=== PATIENT | male | born 1955 | race Asian ===

== ENCOUNTER 2019-01-20 08:15 | Emergency (ER) | payer OTHER, MEDICAID ==
[~2019-01-20] VITALS: Ht 157.5 cm; Wt 45.4 kg
[2019-01-20 08:15] VITALS: BP 179/82
--- NOTE | 2019-01-20 08:15 | NUR ---
PT BIBA TO BED 10.
[2019-01-20] MEDS ORDERED: LORazepam 2 MG/ML VIAL ONE (08:19)
[2019-01-20] MEDS ORDERED: LORazepam 2 MG/ML VIAL IVP ONE (08:20)
[2019-01-20] MEDS ORDERED: PROPOFOL 1000 MG/100 ML PREMIX 100 ML IV ONE ×2 (08:20)
[2019-01-20] MEDS ORDERED: NACL 0.9% 1,000 ML IV ONE (08:20)
--- NOTE | 2019-01-20 08:30 | NUR ---
63 YEAR OLD MALE PATIENT BIBA S/P UNWITNESSED FALL. PATIENT WAS ON TRANSCUTANEOUS PACING TO 60BPM, COOL SKIN, PALE, TIGHT, NONDIAPHORETIC. GCS 8/15 (2,4,2), PATIENT RESPONDS TO PAIN. APHASIC AT THIS TIME. ABRASION TO LEFT SHOULDER CHEST AREA. RESPIRATORY RATE OF 18, NC 2L/MIN O2 SATURATION 100%, BREATHING UNLABORED, NORMAL CHEST RISE/FALL, CLEAR TO AUSCULTATION BILATERALLY. BED IN LOWEST POSITION, SIDE RAILS UPX2 FOR PATIENT SAFETY. DOCTOR LUIS AT BEDSIDE.
[2019-01-20] MEDS ORDERED: NA P133E RC (08:32)
[2019-01-20] MEDS ORDERED: ESCI10TA PO (08:32)
[2019-01-20] MEDS ORDERED: CRAN450C PO (08:32)
[2019-01-20] MEDS ORDERED: MAGN400S60 PO (08:32)
[2019-01-20] MEDS ORDERED: DOCU-299 PO (08:32)
[2019-01-20] MEDS ORDERED: BISA-213 RC (08:32)
[2019-01-20] MEDS ORDERED: BUPR-160 PO (08:32)
[2019-01-20] MEDS ORDERED: ACET-2619 PO (08:32)
--- NOTE | 2019-01-20 09:00 | NUR ---
# 14 FR Jiménez catheter with 10 ml utilizing sterile technique. Immediate return of 5 ml YELLOW urine noted. Bedside drainage bag placed below level of bladder. Urine sample collected and sent to lab. Pt tolerated procedure WELL.
--- NOTE | 2019-01-20 09:05 | NUR ---
LAB AT BEDSIDE
[2019-01-20 09:22] LABS: BASOPHILS % (AUTO) 0.8 % (0.0-2.0); EOSINOPHILS # (AUTO) 0.1 K/uL (0-0.4); EOSINOPHILS % (AUTO) 2.6 % (0.0-4.0); HEMATOCRIT 38.4 % (36-52); HEMOGLOBIN 11.9 g/dL (12.0-18.0); MEAN CORPUSCULAR HEMOGLOBIN 23 pg (27-31); MEAN CORPUSCULAR HGB CONC 31 g/dL (33-37); MONOCYTES # (AUTO) 0.1 K/uL (0.8-1.0); MONOCYTES % (AUTO) 2.7 % (1.7-9.3); NEUTROPHILS % (AUTO) 56.9 % (42.2-75.2); PLATELET COUNT (AUTO) 278 K/uL (140-450); RED BLOOD CELL COUNT(AUTO) 5.19 MIL/uL (4.20-6.10); RED CELL DISTRIBUTION WIDTH 16.1 % (11.6-13.7); WHITE BLOOD COUNT (AUTO) 5.4 K/uL (4.8-10.8)
[2019-01-20 09:24] LABS: ANION GAP 18.5 (8-16); CARBON DIOXIDE 22.6 mmol/L (21-32); CREATININE 1.5 mg/dL (0.7-1.3); POTASSIUM 4.1 mmol/L (3.5-5.1); PROTHROMBIN TIME 10.1 secs (10.8-13.4)
[2019-01-20 09:30] LABS: ALBUMIN 3.3 g/dL (3.4-5.0); TOTAL BILIRUBIN 0.4 mg/dL (0.0-1.0)
--- NOTE | 2019-01-20 09:31 | NUR ---
XRAY AT BEDSIDE
[2019-01-20 09:47] LABS: APPEARANCE,URINE SL CLOUDY (CLEAR); BILIRUBIN,URINE NEGATIVE (NEGATIVE); BLOOD, URINE 3+ (NEGATIVE); COLOR,URINE YELLOW (YELLOW); LEUKOCYTE ESTERASE ,URINE NEGATIVE (NEGATIVE); NITRITE, URINE NEGATIVE (NEGATIVE); PH,URINE 6.5 (5.0-9.0); UGLUCOSE NEGATIVE (NEGATIVE)
[2019-01-20 09:57] LABS: RBC,URINE TOO NUMEROUS TO COUN /HPF (0-5); WBC,URINE 0-5 /HPF (0-5)
--- NOTE | 2019-01-20 10:26 | NUR ---
PT ASLEEP IN BED, AROUSABLE TO VERBAL STIMULI, VSS AT THIS TIME. PT REMAINS ON TCP @ 60BPM
[2019-01-20] MEDS ORDERED: PIPERACILLIN/TAZOBACTAM 3.375 GM in DEXTROSE 5% 50 ML IV ONE (10:30)
[2019-01-20] MEDS ORDERED: NACL 0.9% 1,500 ML IV ONE (10:30)
[2019-01-20] MEDS ORDERED: PIPERACILLIN/TAZOBACTAM 3.375 GM VIAL IV ONE (10:36)
--- NOTE | 2019-01-20 12:06 | NUR ---
PT ASLEEP IN BED, MOVING AROUND A RESULT OF VERBAL & PHYSICAL STIMULI.
--- NOTE | 2019-01-20 12:07 | NUR ---
LAB AT BEDSIDE
[2019-01-20] MEDS ORDERED: ACETAMINOPHEN 325 MG TAB PO PRN (12:45)
[2019-01-20] MEDS ORDERED: DOCUSATE SODIUM 100 MG GELCAP PO PRN (12:45)
[2019-01-20] MEDS ORDERED: NACL 0.9% 1,000 ML IV SCH (12:45)
[2019-01-20] MEDS ORDERED: MORPHINE SULFATE 2 MG/ML SYR IVP PRN (12:45)
[2019-01-20] MEDS ORDERED: ONDANSETRON 4 MG/2 ML VIAL IM/IVP PRN (12:45)
[2019-01-20] MEDS ORDERED: HYDROcodone/APAP 7.5/325 MG 1 TAB PO PRN (12:45)
--- NOTE | 2019-01-20 13:01 | NUR ---
LACTIC ACID 5.1, DR LUIS NOTIFIED
[2019-01-20] MEDS ORDERED: DOBUTamine 500 MG/D5W PREMIX 250 ML IV ONE (13:20)
--- NOTE | 2019-01-20 13:38 | NUR ---
Dr. Hill at bedside for central line insertion.
--- NOTE | 2019-01-20 13:43 | NUR ---
X-Ray at bedside.
--- NOTE | 2019-01-20 15:21 | NUR ---
Patient to be transferred to [facility]. Is being transferred due to NEED FOR HIGHER LEVEL OF CARE. Receiving facility has accepting physician and available space. ER physician has signed transfer form. Patient or responsible green party has agreed to transfer and signed form. Patient belongings inventoried and will be sent with patient. Copy of nursing notes, lab reports, EKG, Physicians Orders and X-rays to be sent with patient. Report called to AIDEN WEINER at receiving facility. [facility] ambulance service IS IN ROUTE TP [facility] for transfer.
[2019-01-20 15:27] VITALS: BP 165/79
== END 2019-01-20 15:21 | disposition short-term general hospital (02) ==
LOC: MED 08:15
DX: I44.2 Atrioventricular block, complete (principal); F03.90 Unspecified dementia, unspecified severity, without behavioral disturbance, psychotic disturbance, mood disturbance, and anxiety; Z79.1 Long term (current) use of non-steroidal anti-inflammatories (NSAID); Z79.899 Other long term (current) drug therapy; Z86.73 Personal history of transient ischemic attack (TIA), and cerebral infarction without residual deficits; Z88.8 Allergy status to other drugs, medicaments and biological substances
CPT/HCPCS: 36415; 36556; 36600; 70450; 71045; 72040; 74176; 80053; 81001; 82803; 83036; 83605; 83880; 84484; 85025; 85610; 85730; 87040; 87086; 96365; 96375; 99291; J2060; J2543; J2704; J7030; Q0092